=== PATIENT | male | born 1990 | race Caucasian/White ===

== ENCOUNTER 2018-10-15 00:50 | Emergency (ER) | payer MEDICAID, OTHER ==
[2018-10-15 01:08] VITALS: BMI 20.2
[2018-10-15 01:10] VITALS: BP 139/88; PULSE 87; RESP 18; TEMP 98.3; O2SAT 99
--- NOTE | 2018-10-15 02:09 | ED PDOC ---
HPI: Back Time Seen by Provider: 10/15/18 01:13 Chief Complaint (Nursing): Cough, Cold, Congestion Chief Complaint (Provider): back pain History Per: Patient History/Exam Limitations: no limitations Onset/Duration Of Symptoms: Days Current Symptoms Are (Timing): Still Present Associated Symptoms: None Additional History Per: Patient Additional Complaint(s): 27yo male, otherwise well, comes to ER reporting right sided lower back pain with associated swelling. 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 Patient additionally reports he had a sore throat and a cough for the past 3-4 days, which has now improved. He reports the back pain is worse with movement. Patient has been taking Advil for pain and Nyquil for his URI symptoms with some relief. No urinary complaints. No additional medical complaints. PMD: None provided Past Medical History Reviewed: Historical Data, Nursing Documentation, Vital Signs Vital Signs: Last Vital Signs Temp 98.3 F 10/15/18 01:08 Pulse 87 10/15/18 01:08 Resp 18 10/15/18 01:08 BP 139/88 10/15/18 01:08 Pulse Ox 99 10/15/18 01:08 - Medical History PMH: No Chronic Diseases - Surgical History Surgical History: No Surg Hx - Family History Family History: States: Unknown Family Hx - Immunization History Hx Tetanus Toxoid Vaccination: No Hx Influenza Vaccination: No Hx Pneumococcal Vaccination: No - Home Medications Home Medications: Ambulatory Orders Medication Instructions Recorded Amoxicillin [Amoxil 500 mg Cap] 500 mg PO Q6 01/14/18 Cyclobenzaprine [Cyclobenzaprine 10 mg PO TID PRN #15 tab 10/15/18 HCl] - Allergies Allergies/Adverse Reactions: Allergies Allergy/AdvReac Type Severity Reaction Status Date / Time No Known Allergies Allergy Verified 10/15/18 01:07 Review of Systems ROS Statement: Except As Marked, All Systems Reviewed And Found Negative Constitutional: Negative for: Fever, Chills ENT: Positive for: Throat Pain Respiratory: Positive for: Cough Genitourinary Male: Negative for: Incontinence Musculoskeletal: Positive for: Back Pain Neurological: Negative for: Weakness, Numbness Physical Exam - Reviewed Nursing Documentation Reviewed: Yes Vital Signs Reviewed: Yes - Physical Exam Appears: Positive for: Non-toxic, No Acute Distress Head Exam: Positive for: ATRAUMATIC, NORMAL INSPECTION, NORMOCEPHALIC Skin: Positive for: Normal Color Eye Exam: Positive for: Normal appearance Neck: Positive for: Supple Cardiovascular/Chest: Positive for: Regular Rate, Rhythm Respiratory: Positive for: Normal Breath Sounds. Negative for: Wheezing Gastrointestinal/Abdominal: Positive for: Normal Exam, Soft Back: Positive for: Muscle Spasm (mild prominence of right paralumbar muscle group most consistent with muscle spasm). Negative for: Vertebral Tenderness Extremity: Positive for: Normal ROM Neurologic/Psych: Positive for: Alert, Oriented. Negative for: Motor/Sensory Deficits - ECG O2 Sat by Pulse Oximetry: 99 (RA) Pulse Ox Interpretation: Normal Medical Decision Making Medical Decision Making: Impression: 27yo male with right lower back pain Plan: -- Chest x-ray -- Flexeril 10mg PO 0156 On reassessment, patient reports improvement in pain. Chest x-ray reviewed, with no acute disease. Patient stable for discharge home, instructed to follow up with PMD or clinic in 2-3 days. Diagnosis: Muscle spasm. Scribe Attestation: Documented by Kalpana Paul, acting as a scribe for Manuel Peralta MD. Provider Scribe Attestation: All medical record entries made by the Scribe were at my direction and personally dictated by me. I have reviewed the chart and agree that the record accurately reflects my personal performance of the history, physical exam, medical decision making, and the department course for this patient. I have also personally directed, reviewed, and agree with the discharge instructions and disposition. Disposition - Clinical Impression Clinical Impression: Back muscle spasm - Disposition Disposition: Routine/Home Disposition Time: 01:56 Condition: STABLE Prescriptions: Cyclobenzaprine [Cyclobenzaprine HCl] 10 mg PO TID PRN #15 tab PRN Reason: muscle spasm/pain Instructions: Muscle Spasms (DC) Forms: Standardized Safety ([place])
--- NOTE | 2018-10-15 07:49 | RAD ---
Date of service: 10/15/2018 HISTORY: cough COMPARISON: No prior. TECHNIQUE: Chest PA and lateral FINDINGS: LUNGS: No active pulmonary disease. PLEURA: No significant pleural effusion identified. No pneumothorax apparent. CARDIOVASCULAR: No aortic atherosclerotic calcification present. Normal cardiac size. No pulmonary vascular congestion. OSSEOUS STRUCTURES: No significant abnormalities. VISUALIZED UPPER ABDOMEN: Normal. OTHER FINDINGS: None. IMPRESSION: No active disease.
== END 2018-10-15 02:12 | disposition home or self-care (01) ==
LOC: H.ER 00:50
DX: M62.830 Muscle spasm of back (principal)